=== PATIENT | female | born 1965 | race Caucasian/White ===

== ENCOUNTER 2023-05-14 09:23 | Outpatient (CLI) | payer BC, SELFPAY | END 2023-05-14 09:24 | disposition home or self-care (01) | LOC: INJ CL 09:25 | PROVIDERS: PCP Physician Assistant; Visit Provider Family Medicine | DX: M51.36 Other intervertebral disc degeneration, lumbar region (principal); M54.16 Radiculopathy, lumbar region | CPT/HCPCS: 62323; J0702; Q9966 ==